=== PATIENT | male | born 1955 | race Caucasian/White ===

== ENCOUNTER 2016-03-11 02:07 | Emergency (ER) | payer OTHER ==
[~2016-03-11] VITALS: Ht 172.7 cm; Wt 83.5 kg
[~2016-03-11 02:07] MED LIST: ALBU18HF2 IH; ASPI-991 PO; ATOR10TA PO; CARV3.122 PO; CHOL100044 PO; ERGO500013 PO; FINA5TAB3 PO; FOLI1TAB16 PO; HYDR-3326 PO; LATA2.5D2 EACHEYE; MAGN200T5 PO; OXCA150T5 PO; RANI150T8 PO; TAMS-12 PO; THIA100T70 PO; [UNRECOGNIZED DRUG - CODE] TP
[2016-03-11 05:06] VITALS: BP 130/75
== END 2016-03-11 05:07 | disposition home or self-care (01) ==
LOC: ER 02:09
DX: F10.129 Alcohol abuse with intoxication, unspecified (principal); R51 Headache; Z93.3 Colostomy status; F17.210 Nicotine dependence, cigarettes, uncomplicated; Z79.82 Long term (current) use of aspirin; G89.29 Other chronic pain; Z95.0 Presence of cardiac pacemaker
CPT/HCPCS: 36415; 70450; 72125; 82962; 99285; A4606; G0481; L0172; Z7610; G6040-TC